=== PATIENT | female | born 2000 | race Caucasian/White ===

== ENCOUNTER 2020-05-09 16:25 | Emergency (ER) | payer MEDICAID, OTHER ==
[~2020-05-09] VITALS: Ht 154.9 cm; Wt 74.1 kg
[2020-05-09 17:48] LABS: BILIRUBIN,URINE NEG (NEG); CLARITY,URINE CLEAR; COLOR,URINE YELLOW; GLUCOSE,URINE NEG (NEG); NITRITE,URINE NEG (NEG); UROBILINOGEN,URINE 0.2 mg/dL (0.2 mg/dL)
[2020-05-09 17:49] LABS: BACTERIA,URINE FEW /HPF (0-FEW); RBC,URINE 0 /HPF (0-2); SQUAMOUS EPITHELIAL CELL,UR MOD /LPF
--- NOTE | 2020-05-09 17:58 | PHYS DOC ---
Past History Past Medical History: Cancer Additional Past Medical Histor: ovarian cancer Past Surgical History: Oophorectomy Smoking: Non-smoker Alcohol Use: Rarely Drug Use: None General Adult EDM: Chief Complaint: PELVIC PAIN HPI: HPI: Patient is a 20 year old female who presents for evaluation of pelvic area pain as well as left lower abdominal discomfort. Patient has had similar symptoms off and on since April 17. She states on that day she had intercourse for the first time. Patient has seen her primary care doctor and was diagnosed with a recent yeast infection. Patient is moderately anxious. She states she is been under a lot of stress because her boyfriend is not talking her and has been avoiding her. Patient has a complicated medical history including prior ovarian cancer. She is status post right ovary removal. Review of Systems: Review of Systems: Constitutional: Denies fever or chills Eyes: Denies change in visual acuity HENT: Denies nasal congestion or sore throat Respiratory: Denies cough or shortness of breath Cardiovascular: Denies chest pain or edema GI: lower and left lower abdominal pain, no nausea or vomiting, no bloody stools or diarrhea : Denies dysuria Musculoskeletal: Denies back pain or joint pain Integument: Denies rash Neurologic: Denies headache, focal weakness or sensory changes Endocrine: Denies polyuria or polydipsia Lymphatic: Denies swollen glands Psychiatric: Denies depression or anxiety Heart Score: Risk Factors: Risk Factors: DM, Current or recent (<one month) smoker, HTN, HLP, family history of CAD, obesity. Risk Scores: Score 0 - 3: 2.5% MACE over next 6 weeks - Discharge Home Score 4 - 6: 20.3% MACE over next 6 weeks - Admit for Clinical Observation Score 7 - 10: 72.7% MACE over next 6 weeks - Early Invasive Strategies Allergies: Allergies: Allergies Coded Allergies Type Severity Reaction Last Updated Verified No Known Drug Allergies 05/09/20 No Physical Exam: PE: Constitutional: Well developed, well nourished, mild acute distress, non-toxic appearance. [] HENT: Normocephalic, atraumatic, bilateral external ears normal, oropharynx moist, no oral exudates, nose normal. [] Eyes: PERRL, EOMI, conjunctiva normal, no discharge. [] Neck: Normal range of motion, no tenderness, supple, no stridor. [] Cardiovascular:Heart rate regular rhythm, no murmur [] Lungs & Thorax: Bilateral breath sounds clear to auscultation [] Abdomen: Bowel sounds normal, soft, mild left lower abd tenderness, no masses, no pulsatile masses. [] Skin: Warm, dry, no erythema, no rash. [] Back: No tenderness, no CVA tenderness. [] Extremities: No tenderness, no cyanosis, no clubbing, ROM intact, no edema. [] Neurologic: Alert and oriented X 3, normal motor function, normal sensory fun ction, no focal deficits noted. [] Psychologic: Affect normal, judgement normal, mood normal. : Female nurse accounting support specialist present. Minimal left adnexal tenderness, white discharge scant present [] Current Patient Data: Labs: Laboratory Tests Test 05/09/20 17:30 05/09/20 17:41 Urine Collection Type Unknown Urine Color Yellow Urine Clarity Clear Urine pH 6.5 Urine Specific [place] >=1.030 Urine Protein Neg (NEG-TRACE) Urine Glucose (UA) Neg mg/dL (NEG) Urine Ketones (Stick) Neg mg/dL (NEG) Urine Blood Neg (NEG) Urine Nitrite Neg (NEG) Urine Bilirubin Neg (NEG) Urine Urobilinogen Dipstick 0.2 mg/dL (0.2 mg/dL) Urine Leukocyte Esterase Neg (NEG) Urine RBC 0 /HPF (0-2) Urine WBC 1-4 /HPF (0-4) Urine Squamous Epithelial Cells Mod /LPF Urine Bacteria Few /HPF (0-FEW) Urine Mucus Slight /LPF POC Urine HCG, Qualitative hcg negative (Negative) Vital Signs: Vital Signs Date Time Temp Pulse Resp B/P (MAP) Pulse Ox O2 Delivery O2 Flow Rate FiO2 05/09/20 16:25 98.5 99 16 148/99 (115) 98 Room Air EKG: EKG: [] Radiology/Procedures: Radiology/Procedures: [[address] [address] IMAGING REPORT Signed PATIENT: MARLENY LANDRY JACCOUNT: [id number] : 2000 LOCATION: ER AGE: 20 SEX: F EXAM STATUS: REG ER ORD. PHYSICIAN: SAROJ DUARTE DO REASON: left adnexal pain, hx right ovarian cancer PROCEDURE: US PELVIS W/TV INDICATION: left adnexal pain, hx right ovarian cancer.Last menstrual period was 04/01/2020. COMPARISON: None available. TECHNIQUE: Transabdominal and endovaginal sonography was performed FINDINGS: The uterus measures 7.8 x 4.3 x 3.5 cm. The endometrium measures 1.2 cm on endovaginal images. There is no focal myometrial abnormality There has been a right oophorectomy. The left ovary measures 2.9 x 3 x 3.2 cm on endovaginal images. Flow seen to the left ovary. There is no free fluid. Prominent pelvic vessels are seen. IMPRESSION: 1. There has been a right oophorectomy. 2. No evidence for left ovarian torsion. 3. Prominent pelvic vessels may be seen with pelvic congestion syndrome, incompletely assessed. Electronically signed by: Aj Slater MD (05/09/2020 5:55 PM) [facility] DICTATED AND SIGNED BY: AJ SLATER MD DATE: 05/09/201754 CC: WILLIE SARGENT DO; SAROJ DUARTE DO ~ ] Course & Med Decision Making: Course & Med Decision Making Pertinent Labs and Imaging studies reviewed. (See chart for details) [] Dragon Disclaimer: Dragon Disclaimer: This electronic medical record was generated, in whole or in part, using a voice recognition dictation system. 180 stable, minimal left adnexal tenderness. Ultrasound did not show evidence of an ovarian torsion. Scant white vaginal discharge noted. Will await swab results before initiating any treatment. Patient had a first sexual encounter on April 17. Female nursing accounting support specialist present during pelvic exam Departure Departure: Impression: Primary Impression: Pelvic pain Additional Impression: Left adnexal tenderness Disposition: HOME/RESIDENCE PRIOR TO ADM Condition: STABLE Referrals: WILLIE SARGENT DO (PCP) Patient Instructions: Pelvic Pain, Female Additional Instructions: You have a slight vaginal discharge. You may consider using [id number] anti-yeast medication include nystatin as necessary. The results of vaginal swabs will take a couple of days. Your urine test was negative and you do not have an obvious bladder infection Justification of Admission: Justification of Admission: Justification of Admission Dx: N/A SAROJ DUARTE DO May 09, 2020 17:58
[2020-05-09 18:25] VITALS: BP 129/66
[2020-05-12 20:07] LABS: CHLAMYDIA PROBE Negative (Negative)
== END 2020-05-09 18:30 | disposition home or self-care (01) ==
LOC: ER 16:25
DX: R10.2 Pelvic and perineal pain (principal); Z90.722 Acquired absence of ovaries, bilateral
CPT/HCPCS: 76830; 76856; 81001; 81025; 87491; 87591; 99284; Q0111; 36415

== ENCOUNTER 2021-06-16 20:02 | Emergency (ER) | payer SELFPAY ==
[~2021-06-16] VITALS: Ht 154.9 cm; Wt 77.3 kg
[2021-06-16 20:30] VITALS: BP 119/80
--- NOTE | 2021-06-16 21:08 | PHYS DOC ---
Past History Past Medical History: Cancer Additional Past Medical Histor: ovarian cancer Past Surgical History: Cancer Surgery, Oophorectomy, Tonsillectomy, Other Additional Past Surgical Histo: WISDOM Smoking: Non-smoker Alcohol Use: Rarely Drug Use: None General Pediatric Assessment History of Present Illness Patient is a otherwise healthy 21-year-old female, up-to-date on her tetanus vaccinations who presents with a chief complaint of facial laceration. States she slipped and fell and hit the bottom right corner of her jaw against the corner of the stair. Denies any loss of consciousness, headache, neck pain, dental pain or loose teeth. Denies any other injuries. States did not really hurt that bad. Review of Systems Review of systems otherwise unremarkable except noted in HPI Allergies Allergies Coded Allergies Type Severity Reaction Last Updated Verified No Known Drug Allergies 05/09/20 No Physical Exam Constitutional: Well developed, well nourished, no acute distress, non-toxic appearance, positive interaction, playful. HENT: Patient has a small, 3 sided superficial laceration just inferior and lateral to the right corner of the mouth that is 1 cm by half a centimeter by half a centimeter, bleeding controlled and no need for suture repair., bilateral external ears normal, oropharynx moist, no oral exudates, nose normal. Neck: Normal range of motion, no tenderness, supple, no stridor. Back: No tenderness, no CVA tenderness. Neurologic: Alert and oriented X 3, normal motor function, normal sensory function, no focal deficits noted. Psychologic: Affect normal, judgement normal, mood normal. Radiology/Procedures [] Current Patient Data Vital Signs Date Time Temp Pulse Resp B/P (MAP) Pulse Ox O2 Delivery O2 Flow Rate FiO2 06/16/21 20:30 98.1 77 18 119/80 (93) 99 Room Air Vital Signs Date Time Temp Pulse Resp B/P (MAP) Pulse Ox O2 Delivery O2 Flow Rate FiO2 06/16/21 20:30 98.1 77 18 119/80 (93) 99 Room Air Vital Signs Date Time Temp Pulse Resp B/P (MAP) Pulse Ox O2 Delivery O2 Flow Rate FiO2 06/16/21 20:30 98.1 77 18 119/80 (93) 99 Room Air Course & Med Decision Making Patient is a 21-year-old female who presents with a facial laceration Vital signs not concerning. Physical exam noted above. No need for suture repair. Wound cleaned. Steri-Strips and bandage placed. States she is up-to-date on her tetanus vaccination. Discussed wound care and given education. Advised to follow-up Friday with primary care physician and set up a follow-up for wound reevaluation. Discussed scar management. Gave return precautions to the ED. Patient grateful, verbalized understanding agree with plan of discharge. [] Departure Departure: Impression: Primary Impression: Facial laceration Disposition: HOME / SELF CARE / HOMELESS Condition: GOOD Referrals: WILLIE SARGENT DO (PCP) Patient Instructions: Facial Laceration, Wound Care, [id number] Additional Instructions: Thank you for coming into the emergency department tonight and allowing us to take care of you. Please read all the attached information to go back over some of the things we discussed on management of your wound. Please also remember about the [id number] scar reduction cream, staying out of the sun and using sunscreen. Please keep it clean, dry and bandaged. Please follow-up with your primary care physician to set up a wound reevaluation appointment. Please come back to the ED with new or concerning symptoms as discussed. SAROJ OSMAN MD Jun 16, 2021 21:08
== END 2021-06-16 21:46 | disposition home or self-care (01) ==
LOC: ER 20:02
DX: S01.81XA Laceration without foreign body of other part of head, initial encounter (principal); W18.00XA Striking against unspecified object with subsequent fall, initial encounter; Y93.89 Activity, other specified; Y92.89 Other specified places as the place of occurrence of the external cause; Y99.8 Other external cause status
CPT/HCPCS: 99282